=== PATIENT | male | born 1960 ===

== ENCOUNTER 2023-09-11 10:21 | Emergency (ER) | payer SELFPAY ==
[2023-09-11] MEDS: Iopamidol 612 MG/ML 100 ML Bottle IVPUSH ONE (10:34)
[2023-09-11 10:41] LABS: HEMATOCRIT 42.7 % (40.0-54.0); HEMOGLOBIN 14.5 g/dL (14.0-18.0); MEAN CORPUSCULAR VOLUME 97.3 fL (80-100); PLATELET COUNT,PLT 165 10^3/uL (150-450); RED BLOOD CELL COUNT 4.39 10^6/uL (4.6-6.2); WHITE BLOOD CELL COUNT,WBC 9.3 10^3/uL (5.0-10.0)
[2023-09-11 10:53] LABS: ALBUMIN 3.1 g/dL (3.4-5.0); ANION GAP 10.3 mEq/L (7-13); BASOPHILS PERCENT AUTO 0.2 % (0.0-1.0); BILIRUBIN TOTAL 0.5 mg/dL (0.2-1.0); BUN/CREATININE RATIO 8.5 (No establ ref range); CREATININE 0.82 mg/dL (0.70-1.30); EOSINOPHILS PERCENT AUTO 1.5 % (1.0-3.0); EST CRCL DRUG DOSING (CG) 93.4 mL/min; LYMPHOCYTES PERCENT AUTO 19.7 % (20.5-50.1); MONOCYTES PERCENT AUTO 6.1 % (2-8); NEUTROPHILS PERCENT AUTO 72.5 % (42.2-75.2); POTASSIUM,K 4.3 mmol/L (3.5-5.1); PROTEIN TOTAL,TP 6.4 g/dL (6.4-8.2)
[2023-09-11 10:55] LABS: A/G RATIO 0.94; PROTHROMBIN TIME 10.8 SEC (9.0-12.0)
[2023-09-11] MEDS: Sodium Chloride 0.9% 1,000 ML IV ONE ×2 (11:14→12:30)
[2023-09-11] MEDS: Diphtheria,Pertussis(Acell),Tetanus Vaccine 0.5 ML Syringe IM ONE (11:14)
[2023-09-11] MEDS: cefTRIAXone 1 GM, Lidocaine 1% 2.1 ML IM ONE (11:14)
[2023-09-11 11:26] LABS: EOSINOPHILS PERCENT MAN 1 % (1-3); LYMPHOCYTES PERCENT MAN 20 % (20-50); MONOCYTES PERCENT MAN 6 % (2-8); SEG NEUTROPHILS PERCENT MAN 72 % (42-75)
[2023-09-11] MEDS: Morphine 2 MG/ML SYRINGE ONE (13:29)
[2023-09-11] MEDS: Morphine 2 MG/ML SYRINGE IVPUSH ONE (13:31)
[2023-09-11] MEDS: Ondansetron 4 MG/2 ML SDV IVPUSH ONE (13:31)
== END 2023-09-11 13:46 ==
LOC: DL.ED 10:21
DX: S12.100A Unspecified displaced fracture of second cervical vertebra, initial encounter for closed fracture (principal); S12.600A Unspecified displaced fracture of seventh cervical vertebra, initial encounter for closed fracture; S22.32XA Fracture of one rib, left side, initial encounter for closed fracture; S00.81XA Abrasion of other part of head, initial encounter; E86.0 Dehydration; F10.129 Alcohol abuse with intoxication, unspecified; Z23 Encounter for immunization; F17.200 Nicotine dependence, unspecified, uncomplicated; V68.5XXA Driver of heavy transport vehicle injured in noncollision transport accident in traffic accident, initial encounter
CPT/HCPCS: 36415; 70450; 71260; 72125; 74177; 80053; 80307; 82947; 83690; 83735; 84484; 85025; 85610; 90471; 90715; 93005; 93010; 96361; 96372; 96374; 99285; 99285-25; J0696; J2270; J3490; J7030; Q9967